=== PATIENT | male | born 1955 | race Hispanic/Latino ===

== ENCOUNTER 2017-04-08 10:51 | Emergency (ER) | payer SELFPAY ==
[~2017-04-08] VITALS: Ht 165.1 cm; Wt 81.8 kg
[~2017-04-08 10:51] MED LIST: ASPIRIN81 MG PO; LISINOP/HCTZ1 TAB PO; LISINOPRIL10 MG PO; NO HOME MEDS
[2017-04-08 11:54] LABS: HEMATOCRIT 41.6 % (39.0-50.0); HEMOGLOBIN 14.6 g/dl (14.0-18.0); IMMATURE GRANULOCYTES 0.3 % (0.0-1.0); MEAN CELL VOLUME 96.3 fL CALC (80.0-100.0); MEAN CORPUSCULAR HGB 33.8 pG CALC (26.0-32.0); MEAN CORPUSCULAR HGB CONC 35.1 g/L CALC (32.0-36.0); NEUT# 5.01 thou/uL (1.82-7.42); RED BLOOD COUNT 4.32 mill/uL (4.70-6.10); RED CELL DISTRI WIDTH 12.5 % (11.5-15.5)
[2017-04-08 12:16] LABS: ALBUMIN 4.8 g/dL (3.2-5.0); ALKALINE PHOSPHATASE 92 u/l (38-126); AMYLASE 95 u/l (30-110); ANION GAP 15 (6-22 (CALC)); BILIRUBIN, TOTAL 1.1 mg/dL (0.0-1.4); BUN 9 mg/dL (9-20); BUN/CREATININE RATIO 13 (12-20 (CALC)); CALCIUM 9.4 mg/dL (8.4-10.2); CARBON DIOXIDE 28 mmol/l (22-30); CHLORIDE 95 mmol/l (95-108); CREATININE 0.6 mg/dL (0.7-1.3); GFR > 60 ML/MIN (>=60 (CALC)); GFR FOR AFR.AMER. > 60 ML/MIN (>=60 (CALC)); GLUCOSE 105 mg/dL (75-110); LIPASE 214 u/l (23-300); POTASSIUM 3.9 mmol/l (3.5-5.1); SGOT/AST 59 u/l (17-59); SGPT/ALT 47 u/l (21-72); SODIUM 134 mmol/l (137-146); TOTAL PROTEIN 8.4 g/dL (6.3-8.2)
[2017-04-08 12:17] LABS: URINE BLOOD DIPSTICK NEGATIVE (NEGATIVE); URINE CLARITY CLEAR; URINE GLUCOSE - DIPSTICK NEGATIVE (NEGATIVE); URINE KETONE NEGATIVE (NEGATIVE); URINE LEUK ESTERASE NEGATIVE (NEGATIVE); URINE NITRITE - DIPSTICK NEGATIVE (Negative); URINE PROTEIN - DIPSTICK TRACE mg/dL (NEG-TRACE)
[2017-04-08 12:18] LABS: URINE BILIRUBIN - DIPSTICK SMALL (NEGATIVE); URINE COLOR DK. YELLOW
[2017-04-08 12:28] LABS: MYOGLOBIN 19 ng/mL (0 - 121)
[2017-04-08 14:03] VITALS: BP 152/84
[2017-04-08] MEDS ORDERED: NAPROSYN500 MG PO (14:07)
== END 2017-04-08 14:15 | disposition home or self-care (01) | DRG 204 ==
LOC: ED 10:51
PROVIDERS: Emergency Medicine
DX: R07.81 Pleurodynia (principal); I10 Essential (primary) hypertension; R42 Dizziness and giddiness; Z86.73 Personal history of transient ischemic attack (TIA), and cerebral infarction without residual deficits

== ENCOUNTER 2020-07-17 16:52 | Emergency (ER) | payer SELFPAY ==
[~2020-07-17] VITALS: Ht 162.6 cm; Wt 81.6 kg
[~2020-07-17 16:52] MED LIST changes: +NAPROSYN500 MG PO
[2020-07-17 17:23] LABS: IMMATURE GRANULOCYTES 0.5 % (0.0-5.0); MEAN CELL VOLUME 94.1 fL CALC (80.0-100.0); MEAN CORPUSCULAR HGB 30.7 pG CALC (26.0-32.0); MEAN CORPUSCULAR HGB CONC 32.6 g/dL CAL (32.0-36.0); NEUT# 5.13 thou/uL (1.82-7.42); RED BLOOD COUNT 4.89 mill/uL (4.70-6.10); RED CELL DISTRI WIDTH 13.7 % (11.5-15.5)
[2020-07-17 17:37] LABS: ALBUMIN 4.3 g/dL (3.2-5.0); ALKALINE PHOSPHATASE 69 u/l (38-126); ANION GAP 18 (6-22 (CALC)); BILIRUBIN, TOTAL 0.8 mg/dL (0.0-1.4); BUN 6 mg/dL (8-23); BUN/CREATININE RATIO 10 (12-20 (CALC)); CHLORIDE 97 mmol/l (95-108); CREATININE 0.6 mg/dL (0.7-1.3); ETHYL ALCOHOL 67 mg/dl (0-30); GFR > 60 ML/MIN (>=60 (CALC)); GFR FOR AFR.AMER. > 60 ML/MIN (>=60 (CALC)); LIPASE 229 u/l (23-300); POTASSIUM 4.2 mmol/l (3.5-5.1); SGOT/AST 30 u/l (19-48); SODIUM 131 mmol/l (137-146); TOTAL PROTEIN 7.8 g/dL (6.3-8.2)
[2020-07-17 17:38] LABS: CARBON DIOXIDE 20 mmol/l (22-30)
[2020-07-17] MEDS ORDERED: LISINOPRIL10 MG PO (18:40)
[2020-07-17 20:42] VITALS: BP 176/95
== END 2020-07-17 19:56 | disposition home or self-care (01) | DRG 305 ==
LOC: ED 16:52
DX: I10 Essential (primary) hypertension (principal); R53.1 Weakness; T46.5X6A Underdosing of other antihypertensive drugs, initial encounter; Z91.128 Patient's intentional underdosing of medication regimen for other reason

== ENCOUNTER 2020-09-29 09:01 | Emergency (ER) | payer SELFPAY ==
[~2020-09-29] VITALS: Ht 162.6 cm; Wt 72.0 kg
[2020-09-29 10:20] LABS: HEMATOCRIT 44.7 % (39.0-50.0); HEMOGLOBIN 14.7 g/dl (14.0-18.0); IMMATURE GRANULOCYTES 0.5 % (0.0-5.0); MEAN CELL VOLUME 95.5 fL CALC (80.0-100.0); MEAN CORPUSCULAR HGB 31.4 pG CALC (26.0-32.0); MEAN CORPUSCULAR HGB CONC 32.9 g/dL CAL (32.0-36.0); NEUT# 3.7 thou/uL (1.82-7.42); RED BLOOD COUNT 4.68 mill/uL (4.70-6.10); RED CELL DISTRI WIDTH 13.4 % (11.5-15.5)
[2020-09-29 10:38] LABS: ALKALINE PHOSPHATASE 68 u/l (38-126); ANION GAP 10 (6-22 (CALC)); BILIRUBIN, TOTAL 0.7 mg/dL (0.0-1.4); BUN 13 mg/dL (8-23); BUN/CREATININE RATIO 18 (12-20 (CALC)); CHLORIDE 101 mmol/l (95-108); CREATININE 0.7 mg/dL (0.7-1.3); GFR > 60 ML/MIN (>=60 (CALC)); GFR FOR AFR.AMER. > 60 ML/MIN (>=60 (CALC)); POTASSIUM 4.1 mmol/l (3.5-5.1); SGOT/AST 31 u/l (19-48); SODIUM 136 mmol/l (137-146)
[2020-09-29 10:39] LABS: CARBON DIOXIDE 29 mmol/l (22-30)
[2020-09-29 10:49] LABS: MYOGLOBIN 89 ng/mL (0 - 121)
[2020-09-29] MEDS ORDERED: NAPROXEN500 MG PO (11:44)
[2020-09-29 11:52] VITALS: BP 170/85
[2020-09-29] MEDS ORDERED: LISINOPRIL10 MG PO (18:00)
== END 2020-09-29 12:02 | disposition home or self-care (01) | DRG 305 ==
LOC: ED 09:01
PROVIDERS: Emergency Medicine
DX: I10 Essential (primary) hypertension (principal); M54.5 Low back pain; T46.5X6A Underdosing of other antihypertensive drugs, initial encounter; Z91.128 Patient's intentional underdosing of medication regimen for other reason
CPT/HCPCS: Q9967

== ENCOUNTER 2021-12-17 22:09 | Observation (INO) | payer SELFPAY ==
[~2021-12-17] VITALS: Ht 162.6 cm; Wt 84.0 kg
[~2021-12-17 22:09] MED LIST changes: +NAPROXEN500 MG PO
--- NOTE | 2021-12-17 22:13 | NUR ---
PT ASSISTED OUT OF CAR AND TO W/C. SIGNED IN AND BROUGHT BACK TO ER DESK. STROKE ALERT CALLED...PT TO CT SCAN.
[2021-12-17 22:47] LABS: GFR > 60 ML/MIN (>=60 (CALC)); GFR FOR AFR.AMER. > 60 ML/MIN (>=60 (CALC))
[2021-12-17 22:50] LABS: HEMATOCRIT 47.7 % (39.0-50.0); IMMATURE GRANULOCYTES 0.3 % (0.0-5.0); MEAN CORPUSCULAR HGB 31.9 pG CALC (26.0-32.0); MEAN CORPUSCULAR HGB CONC 33.5 g/dL CAL (32.0-36.0); NEUT# 4.17 thou/uL (1.82-7.42); RED BLOOD COUNT 5.02 mill/uL (4.70-6.10); RED CELL DISTRI WIDTH 14.3 % (11.5-15.5)
[2021-12-17 22:56] VITALS: BP 197/99
[2021-12-17 23:01] VITALS: BP 184/100
[2021-12-17 23:09] LABS: ACT PARTIAL THROMBO TIME 25.3 SECONDS (20.0-32.5); ALBUMIN 4.6 g/dL (3.2-5.0); ANION GAP 12 (6-22 (CALC)); BILIRUBIN, TOTAL 0.5 mg/dL (0.0-1.4); BUN 10 mg/dL (8-23); BUN/CREATININE RATIO 14 (12-20 (CALC)); CARBON DIOXIDE 30 mmol/l (22-30); CHLORIDE 95 mmol/l (95-108); CREATININE 0.7 mg/dL (0.7-1.3); ETHYL ALCOHOL 0 mg/dl (0-30); GFR > 60 ML/MIN (>=60 (CALC)); GFR FOR AFR.AMER. > 60 ML/MIN (>=60 (CALC)); LIPASE 343 u/l (23-300); POTASSIUM 3.7 mmol/l (3.5-5.1); PROTHROMBIN TIME 10.7 SECONDS (9.0-12.5); SGOT/AST 35 u/l (19-48); SODIUM 134 mmol/l (137-146)
[2021-12-17 23:15] LABS: ALKALINE PHOSPHATASE 104 u/l (38-126); TOTAL PROTEIN 8.7 g/dL (6.3-8.2)
[2021-12-17 23:24] VITALS: BP 158/92
--- NOTE | 2021-12-17 23:25 | NUR ---
RN WITH PT IN CT.
[2021-12-17 23:26] VITALS: BP 180/87
[2021-12-17 23:30] VITALS: BP 178/86
--- NOTE | 2021-12-17 23:39 | NUR ---
PT RESTING CONFORTABLY IN BED WITH DAUGHTER AND SON IN LAW AT BEDSIDE. PT HAS call light
[2021-12-17 23:46] VITALS: BP 165/83
[2021-12-17 23:59] LABS: ALBUMIN 4.7 g/dL (3.2-5.0); ALKALINE PHOSPHATASE 104 u/l (38-126); BILIRUBIN, TOTAL 0.5 mg/dL (0.0-1.4); C-REACTIVE PROTEIN 0.7 mg/dL (0-0.9); CALCULATED LDLCHOLESTEROL 100 mg/dL (62-129 (CALC)); CHOLESTEROL HDL RATIO 3.4 (<4.4 (CALC)); HDL CHOLESTEROL 49 mg/dL (>=40); MAGNESIUM 1.7 mg/dL (1.6-2.3); SGOT/AST 45 u/l (19-48); TOTAL CHOLESTEROL 164 mg/dl (0-199); TOTAL PROTEIN 8.6 g/dL (6.3-8.2); TOTAL TRIGLYCERIDES 78 mg/dl (30-149); VLDL CHOLESTROL 16 mg/dl (4-45 (CALC))
[2021-12-18] VITALS (29 sets, daily range): BP systolic 130–195; BP diastolic 71–104
--- NOTE | 2021-12-18 00:27 | NUR ---
RN PROVIDED REPORT TO JUDIT IN ICU ON PT. DELIVERY ROUTE DRIVER PT TO ICU ROOM 1 FOR CONTINUATION OF CARE.
--- NOTE | 2021-12-18 00:30 | NUR ---
PT RESTING IN BED WITH NO COMPLAINTS.
--- NOTE | 2021-12-18 01:00 | NUR ---
PATIENT ARRIVED TO ICU VIA STRETCHER WITH FREEZER PERSON JESS AT THIS TIME. PATIENT IS ALERT AND ORIENTED X 3 AT THIS TIME AND DID ASSIST TO BED. PATIENT NIH SCORE AT THIS TIME IS A ONE ONLY DEFICIT NOTED WAS INCORRECT YEAR OF . PATIENTS GRASP IS STRONG AND OBEYS ALL COMMAND IN MOBILITY. PATIENT DENIES ANY PAIN AT THIS TIME AND OR ANY SENSATION LOSS OR FEELING. PATIENT HAS NO NOTED SLURRED SPEECH. PATENT STATES THAT HE JUST MOVED HERE FROM [place] AND I "LOST MY BLOOD PRESSURE MEDICINE ON THE BUS". PATIENT NEURO CHECKS ARE NEGATIVE FOR ANY DEFICITS AT THIS TIME AND MEND EXAM IS NEGATIVE. PATIENT IS ON PNEUMATIC TESTER AT THIS TIME AND IS SINUS RHYTHM AT 61 SPO2 IS CURRENTLY 96% ON ROOM AIR. LUUNG SILVA ARE CLEAR AND BOWEL SOUNDS ARE PRESENT IN ALL FOUR QUADS. PATIENT ROOM ORIENTATION GIVEN AND SAFETY ORIENTATION WELL TO INCLUDE SIDERAIL POLICY. THICKENER OPERATOR DONE SEE INTERVENTIONS. SCD'S ON ON AT THIS TIME. WILL CONTINUE TO [facility].
--- NOTE | 2021-12-18 02:00 | NUR ---
NIH AND NEURO AND MEND EXAMS REMAIN NEGATIVE FOR ANY DEFICITS AT THIS TIME. PATIENT IS ALERT AND ORIENTED. SIDERAILS ARE UP CALL LIGHT WITHIN REACH.
--- NOTE | 2021-12-18 02:00 | NUR ---
PATIENTS BP AT THIS TIME IS 184/93 SPO2 IS 95 % ON ROOM AIR.
--- NOTE | 2021-12-18 02:39 | NUR ---
PATIENT RESTING AT THIS TIME WITH EYES CLOSED RESPIRATION EASY AND UNLABORED AT THIS TIME SPO2 CURRENTLY 99% ON ROOM AIR AND BP 176/89 AT THIS TIME. SIDERAILS ARE UP CALL LIGHT WITHIN REACH. WILL CONTINUE TO MONITOR.
--- NOTE | 2021-12-18 02:47 | NUR ---
PATIENT NIH, MEND AND NEURO CHECK REMAIN UNCHANGED AT THIS TIME AND PATIENT IS NEGATIVE FOR ANY DEFICITS. PATIENT PLACED ON 2L OF 02 AT THIS TIME TO MAINTAIN SPO2 GREATER THAN 94%. PATIENT NUT GRADER READING SINUS STEPHANIE AND HR OF 57 AND SPO2 IS 99% ON 2 LITERS NASAL CANNULA. SIDERAILS ARE UP X 2 CALL LIGHT WIHTIN REACH WILL CONTINUE TO MONITOR.
--- NOTE | 2021-12-18 04:47 | NUR ---
PATIENT RESTING IN BED AT THIS TIME ALERT AND ORIENTED X 3 DENIES ANY PAIN NEURO, MENDS AND NIS REMAIN UNCHAGED AND WITHOUT DIFICETS AT THIS TIME. PATIENT DENIES ANY PAIN AND DENIES ANY SENSATION LOSS. PATIENT BP AT THIS TIME IS 176/89 AND SPO2 ON 2 LITERS IS CURRENTLY 97%.
[2021-12-18 05:38] LABS: URINE BILIRUBIN - DIPSTICK NEGATIVE (NEGATIVE); URINE BLOOD DIPSTICK NEGATIVE (NEGATIVE); URINE COLOR YELLOW; URINE GLUCOSE - DIPSTICK NEGATIVE (NEGATIVE); URINE KETONE NEGATIVE (NEGATIVE); URINE LEUK ESTERASE NEGATIVE (NEGATIVE); URINE PH 7.5 (4.5-8.0); URINE PROTEIN - DIPSTICK NEGATIVE (NEG-TRACE); URINE UROBILINOGEN - DIPSTICK 0.2 E.U./dL (0.2)
--- NOTE | 2021-12-18 06:03 | NUR ---
PATIENT AWAKEN AT THIS TIME FOR NEURO ASSESSMENT. NEURO CHECKS, MEND, NIH REMAIN UNCHANGED FROM PREVIOUS ASSESSMENT AND NO DIFICITS NOTED. PATIENT DENEIS ANY PAIN AND OR HEADACHE AND OR LOSS OF SENSATION. SIDERAILS REMAIN UP CALL LIGHT IS WITHIN REACH. WILL CONTINUE TO MONITOR
[2021-12-18 06:10] LABS: URINE NITRITE - DIPSTICK NEGATIVE (Negative)
--- NOTE | 2021-12-18 07:59 | NUR ---
PT RESTING IN BED, PT IS EASILY [place]. PT STATES HE IS FEELING MUCH BETTER. COMPLETED NEURO ASSESSMENT THIS A.M. PT ANSWERS QUESTIONS AND FOLLOWS COMMANDS APPROPRIATELY, NO DEFICITS NOTATED. PT HAS CALL LIGHT NEAR AND DEMONSTRATES HOW TO CALL IF IN NEED OF ANY ASSISTANCE. PT HAS FALL PRECAUTIONS IN PLACE AND SCDS ON AND IS BEING CLOSELY MONITORED. ALL PT NEEDS HAVE BEEN ADDRESSED.
[2021-12-18 09:36] LABS: HEMATOCRIT 47.3 % (39.0-50.0); HEMOGLOBIN 15.7 g/dl (14.0-18.0); IMMATURE GRANULOCYTES 0.2 % (0.0-5.0); MEAN CELL VOLUME 94.6 fL CALC (80.0-100.0); MEAN CORPUSCULAR HGB 31.4 pG CALC (26.0-32.0); MEAN CORPUSCULAR HGB CONC 33.2 g/dL CAL (32.0-36.0); NEUT# 3.09 thou/uL (1.82-7.42); RED CELL DISTRI WIDTH 14.3 % (11.5-15.5)
[2021-12-18 09:50] LABS: ANION GAP 8 (6-22 (CALC)); BUN 8 mg/dL (8-23); BUN/CREATININE RATIO 12 (12-20 (CALC)); CARBON DIOXIDE 30 mmol/l (22-30); CHLORIDE 99 mmol/l (95-108); CREATININE 0.6 mg/dL (0.7-1.3); GFR > 60 ML/MIN (>=60 (CALC)); GFR FOR AFR.AMER. > 60 ML/MIN (>=60 (CALC)); SODIUM 133 mmol/l (137-146)
--- NOTE | 2021-12-18 10:03 | NUR ---
PT UNABLE TO RECEIVE MRI DUE TO HAVING METAL IN EYE FROM A WELDING ACCIDENT. INFORMATION WAS RELAYED TO DOCTOR. AWAITING FURTHER ORDERS.
--- NOTE | 2021-12-18 10:30 | NUR ---
PT ATE BREAKFAST WITH NO ASSISTANCE OR NO DIFFICULTY SWALLOWING, PT HAS NO C/O CP, DIZZINESS OR ANY WEAKNESS. WHEN ASKED HOW DOES HE FEEL, PT STATES HE FEELS MUCH BETTER THAN YESTERDAY, HE COULDN'T EVEN TALK. PT HAS CALL LIGHT NEAR AND ALL PT NEEDS HAVE BEEN ADDRESSED. WILL CONTINUE TO CLOSELY MONITOR PT.
[2021-12-18] MEDS ORDERED: LISINOPRIL10 MG PO ×2 (10:52→19:25)
[2021-12-18] MEDS ORDERED: NAPROXEN500 MG PO (10:53)
--- NOTE | 2021-12-18 12:00 | NUR ---
PT IS SLEEPING, EASILY AROUSABLE. PT DOESN'T WANT LUNCH AT THIS TIME, BUT REQUESTS FOR TRAY TO STAY IN ROOM AND TO HEAT UP LATER. PT HAS NO C/O CP,SOB , DIZZINESS OR WEAKNESS. PT HAS CALL LIGHT NEAR. WILL CONTINUE TO MONITOR PT CLOSELY.
--- NOTE | 2021-12-18 14:07 | NUR ---
PT HAS DAUGHTER AT BEDSIDE, PT IS TALKING AND SITTING UP ON SIDE OF BED. PT WANTS TO EAT OFFERED TO HEAT UP FOOD HOWEVER PT STATES HIS MEAL IS FINE IS. PT STATES HE HAS NO DIFFICULTY EATING AND DOESN'T REQUIRE ANY ASSISTANCE WITH HIS MEAL. PT HAS NO FEELING OF LIGHTHEADEDNESS OR DIZZINESS. PT FEELS STABLE TO SITTING UP ON SIDE OF BED. PT HAS NO COMPLAINTS. PT HAS CALL LIGHT NEAR AND WILL CONTINUE TO MONITOR PT.
--- NOTE | 2021-12-18 15:28 | NUR ---
ECHO AT BEDSIDE.
--- NOTE | 2021-12-18 17:00 | NUR ---
PT SLEEPING, O2 MONITOR ALARMS, PT HAS AN O2 SAT OF 82% ON RA. DAUGHTER IS AT BEDSIDE AND STATES THAT FATHER WILL STOP BRETHING WHILE HE SLEEPS. WILL CONTINUE TO MONITOR PT CLOSELY.
--- NOTE | 2021-12-18 17:28 | NUR ---
CALLED BY RN WHO EXPRESSED CONCERN THAT [facility] MAY HAVE SLEEP APNEA DUE TO BREATH PAUSES AND DESATS. RT CAME TO BEDSIDE TO EVALUATE, AND PAUSES AND DESATS WERE NOTED. DR RINCON CONTACTED AND UPDATED. ORDER GIVEN FOR CPAP DURING SLEEP FOR POSSIBLE SLEEP APNEA.
[2021-12-18] MEDS ORDERED: ATORVASTATIN CA40 MG PO (19:24)
[2021-12-18] MEDS ORDERED: PLAVIX75 MG PO (19:24)
[2021-12-18] MEDS ORDERED: AMLODIPINE BESYL5 MG PO (19:24)
[2021-12-18] MEDS ORDERED: ADLT ASA LOW81 MG PO (19:25)
--- NOTE | 2021-12-18 19:30 | NUR ---
PATIENT RESTING IN BED AT THIS TIME AUDITOR MEDICAL CLAIMS DONE SEE INTERVENTIONS. PATIENT NIH, NEURO CHECKS AND MEND ARE ALL NEGATIVE FOR ANY DEFICITS AT THIS TIME. PATIENT DENIES ANY WEAKNESS AND OR PAIN OR CONFUSION. PATIENT IS ALERT AND ORIENTED X 3. THERE IS NO EVIDIENCE OF EDEMA NOTED. LUNG SILVA ARE CLEAR AND BOWEL SOUNDS ARE PRESENT IN ALL FOUR QUADRANDTS[address] DR. AMIN HAS CALLED IN AT THIS TIME TO D/C PATIENT AND PATIENT ADVISED OF THIS. PATIENT DAUGHTER CALLED WELL. PATIENT VERBALIZES UNDERSTANDING OF D/C INSTRUCTIONS PATENT LEGAL ASSISTANT READING SINUS RHYTHM AT 81.
--- NOTE | 2021-12-18 20:30 | NUR ---
Discharge instructions given. Patient verbalizes understanding of same. Discharged in stable condition via Wheelchair to Home with family. All belongings sent with pt. D/C INSTRUCTIONS GONE OVER WITH DAUGHTER AT THIS TIME.
== END 2021-12-18 20:30 | disposition home or self-care (01) | DRG 69 ==
LOC: ED 22:09 → ED-I 23:19 → ED 23:19 → ICU 12-18 00:04
PROVIDERS: ADMIT Internal Medicine; ATTEND Internal Medicine
DX: G45.9 Transient cerebral ischemic attack, unspecified (principal); I10 Essential (primary) hypertension; T46.5X6A Underdosing of other antihypertensive drugs, initial encounter; Z91.128 Patient's intentional underdosing of medication regimen for other reason; Z86.73 Personal history of transient ischemic attack (TIA), and cerebral infarction without residual deficits; Z18.10 Retained metal fragments, unspecified; Z20.822 Contact with and (suspected) exposure to COVID-19
CPT/HCPCS: Q9967

== ENCOUNTER 2022-02-27 11:14 | Emergency (ER) | payer SELFPAY ==
[~2022-02-27] VITALS: Ht 162.6 cm; Wt 81.8 kg
[~2022-02-27 11:14] MED LIST changes: +ADLT ASA LOW81 MG PO; +AMLODIPINE BESYL5 MG PO; +ATORVASTATIN CA40 MG PO; +PLAVIX75 MG PO
[2022-02-27 11:36] LABS: IMMATURE GRANULOCYTES 0.3 % (0.0-5.0); MEAN CELL VOLUME 92.7 fL CALC (80.0-100.0); MEAN CORPUSCULAR HGB 31.2 pG CALC (26.0-32.0); MEAN CORPUSCULAR HGB CONC 33.7 g/dL CAL (32.0-36.0); NEUT# 5.7 thou/uL (1.82-7.42); RED BLOOD COUNT 4.36 mill/uL (4.70-6.10); RED CELL DISTRI WIDTH 13.5 % (11.5-15.5)
[2022-02-27 11:50] LABS: HEMATOCRIT 40.4 % (39.0-50.0); HEMOGLOBIN 13.6 g/dl (14.0-18.0)
[2022-02-27 12:29] LABS: ALBUMIN 3.4 g/dL (3.2-5.0); ALKALINE PHOSPHATASE 81 u/l (38-126); ANION GAP 11 (6-22 (CALC)); BILIRUBIN, TOTAL 0.6 mg/dL (0.0-1.4); BUN 7 mg/dL (8-23); BUN/CREATININE RATIO 12 (12-20 (CALC)); CARBON DIOXIDE 25 mmol/l (22-30); CHLORIDE 95 mmol/l (95-108); CREATININE 0.6 mg/dL (0.7-1.3); ETHYL ALCOHOL 29 mg/dl (0-30); GFR FOR AFR.AMER. > 60 ML/MIN (>=60 (CALC)); GFR OTHER RACES > 60 ML/MIN (>=60 (CALC)); POTASSIUM 3.5 mmol/l (3.5-5.1); SGOT/AST 24 u/l (19-48); SODIUM 127 mmol/l (137-146); TOTAL PROTEIN 6.4 g/dL (6.3-8.2)
[2022-02-27 12:40] LABS: MYOGLOBIN 64 ng/mL (0 - 121)
[2022-02-27 14:31] VITALS: BP 143/71
[2022-02-27] MEDS ORDERED: AMOXICILLIN500 MG PO (14:55)
[2022-02-27] MEDS ORDERED: TAM75CAP PO (14:55)
== END 2022-02-27 15:21 | disposition home or self-care (01) | DRG 153 ==
LOC: ED 11:14
PROVIDERS: Emergency Medicine
DX: J02.0 Streptococcal pharyngitis (principal); J10.1 Influenza due to other identified influenza virus with other respiratory manifestations; F10.10 Alcohol abuse, uncomplicated; Y90.1 Blood alcohol level of 20-39 mg/100 ml

== ENCOUNTER 2022-10-25 00:27 | Emergency (ER) | payer SELFPAY ==
[~2022-10-25] VITALS: Ht 162.6 cm; Wt 77.0 kg
[2022-10-25] VITALS (24 sets, daily range): BP systolic 124–173; BP diastolic 63–100
[~2022-10-25 00:27] MED LIST changes: +AMOXICILLIN500 MG PO; +TAM75CAP PO
[2022-10-25 00:57] LABS: BASO% 1.3 % (0-3); EOS% 6.3 % (0-8); HEMATOCRIT 37.2 % (39.0-50.0); IMMATURE GRANULOCYTES 0.3 % (0.0-5.0); LYMPH% 20.9 % (15-41); MEAN CELL VOLUME 94.7 fL CALC (80.0-100.0); MEAN CORPUSCULAR HGB 30.5 pG CALC (26.0-32.0); MEAN CORPUSCULAR HGB CONC 32.3 g/dL CAL (32.0-36.0); MONO% 11.2 % (2-13); NEUT# 4.54 thou/uL (1.82-7.42); RED BLOOD COUNT 3.93 mill/uL (4.70-6.10); RED CELL DISTRI WIDTH 14.1 % (11.5-15.5)
[2022-10-25 01:06] LABS: ALBUMIN 3.6 g/dL (3.2-5.0); ALKALINE PHOSPHATASE 74 u/l (38-126); ANION GAP 11 (6-22 (CALC)); BUN 11 mg/dL (8-23); BUN/CREATININE RATIO 12 (12-20 (CALC)); CARBON DIOXIDE 25 mmol/l (22-30); CHLORIDE 98 mmol/l (95-108); CREATININE 0.9 mg/dL (0.7-1.3); ETHYL ALCOHOL 156 mg/dl (0-30); GFR FOR AFR.AMER. > 60 ML/MIN (>=60 (CALC)); GFR OTHER RACES > 60 ML/MIN (>=60 (CALC)); POTASSIUM 3.5 mmol/l (3.5-5.1); SGOT/AST 26 u/l (19-48); SODIUM 130 mmol/l (137-146); TOTAL PROTEIN 6.3 g/dL (6.3-8.2)
[2022-10-25 01:10] LABS: BILIRUBIN, TOTAL 0.2 mg/dL (0.2-1.3)
[2022-10-25 02:20] LABS: URINE BILIRUBIN - DIPSTICK NEGATIVE (NEGATIVE); URINE BLOOD DIPSTICK NEGATIVE (NEGATIVE); URINE COLOR YELLOW; URINE GLUCOSE - DIPSTICK NEGATIVE (NEGATIVE); URINE KETONE NEGATIVE (NEGATIVE); URINE LEUK ESTERASE NEGATIVE (NEGATIVE); URINE PROTEIN - DIPSTICK NEGATIVE (NEG-TRACE); URINE SPECIFIC GRAVITY <=1.005
[2022-10-25 02:38] LABS: URINE NITRITE - DIPSTICK NEGATIVE (Negative)
== END 2022-10-25 10:06 | disposition home or self-care (01) | DRG 897 ==
LOC: ED 00:27
PROVIDERS: Family Medicine
DX: F10.129 Alcohol abuse with intoxication, unspecified (principal); I10 Essential (primary) hypertension; Y90.6 Blood alcohol level of 120-199 mg/100 ml

== ENCOUNTER 2022-11-16 10:23 | Emergency (ER) | payer SELFPAY ==
[2022-11-16] VITALS (11 sets, daily range): BP systolic 158–190; BP diastolic 78–105
[~2022-11-16] VITALS: Ht 162.6 cm; Wt 108.0 kg
[2022-11-16 11:56] LABS: BASO% 1.5 % (0-3); EOS% 6.5 % (0-8); HEMATOCRIT 40.6 % (39.0-50.0); HEMOGLOBIN 13.4 g/dl (14.0-18.0); IMMATURE GRANULOCYTES 0.2 % (0.0-5.0); LYMPH% 25.9 % (15-41); MEAN CELL VOLUME 92.5 fL CALC (80.0-100.0); MEAN CORPUSCULAR HGB 30.5 pG CALC (26.0-32.0); MONO% 15.3 % (2-13); NEUT# 2.64 thou/uL (1.82-7.42); NEUT% 50.6 % (42-76); RED BLOOD COUNT 4.39 mill/uL (4.70-6.10); RED CELL DISTRI WIDTH 13.4 % (11.5-15.5)
[2022-11-16 12:07] LABS: ALBUMIN 4.1 g/dL (3.2-5.0); ALKALINE PHOSPHATASE 78 u/l (38-126); ANION GAP 11 (6-22 (CALC)); BILIRUBIN, TOTAL 0.3 mg/dL (0.2-1.3); BUN 4 mg/dL (8-23); BUN/CREATININE RATIO 6 (12-20 (CALC)); CARBON DIOXIDE 29 mmol/l (22-30); CHLORIDE 93 mmol/l (95-108); CPK 88 u/l (55-170); CREATININE 0.7 mg/dL (0.7-1.3); GFR FOR AFR.AMER. > 60 ML/MIN (>=60 (CALC)); GFR OTHER RACES > 60 ML/MIN (>=60 (CALC)); POTASSIUM 4.1 mmol/l (3.5-5.1); SGOT/AST 32 u/l (19-48); SODIUM 129 mmol/l (137-146); TOTAL PROTEIN 7.3 g/dL (6.3-8.2)
[2022-11-16 13:33] LABS: URINE BILIRUBIN - DIPSTICK NEGATIVE (NEGATIVE); URINE BLOOD DIPSTICK NEGATIVE (NEGATIVE); URINE COLOR YELLOW; URINE GLUCOSE - DIPSTICK NEGATIVE (NEGATIVE); URINE KETONE NEGATIVE (NEGATIVE); URINE LEUK ESTERASE NEGATIVE (NEGATIVE); URINE PROTEIN - DIPSTICK NEGATIVE (NEG-TRACE); URINE SPECIFIC GRAVITY <=1.005; URINE UROBILINOGEN - DIPSTICK 0.2 E.U./dL (0.2)
[2022-11-16 13:37] LABS: URINE NITRITE - DIPSTICK NEGATIVE (Negative)
== END 2022-11-17 01:10 | disposition home or self-care (01) | DRG 897 ==
LOC: ED 10:23
PROVIDERS: Nurse Practitioner
DX: F10.129 Alcohol abuse with intoxication, unspecified (principal); I10 Essential (primary) hypertension; Y90.6 Blood alcohol level of 120-199 mg/100 ml; Z59.00 Homelessness unspecified

== ENCOUNTER 2023-03-18 22:23 | Emergency (ER) | payer SELFPAY ==
[~2023-03-18] VITALS: Ht 162.6 cm; Wt 90.0 kg
[2023-03-19 06:20] VITALS: BP 161/94
== END 2023-03-19 06:20 | disposition home or self-care (01) | DRG 897 ==
LOC: ED 22:23
DX: F10.129 Alcohol abuse with intoxication, unspecified (principal); I10 Essential (primary) hypertension; Z91.14 Patient's other noncompliance with medication regimen